=== PATIENT | male | born 1995 | race American Indian/Alaskan Native ===

== ENCOUNTER 2017-01-15 07:45 | Emergency (ER) | payer SELFPAY ==
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
[2017-01-15] MEDS ORDERED: NORCO 5/325 PO ONE (09:38)
[2017-01-15] MEDS ORDERED: TRIPLE ANTIBIOTIC TP ONE (09:38)
[2017-01-15] MEDS ORDERED: FLEXERIL PO ONE (09:38)
[2017-01-15] MEDS ORDERED: BOOSTRIX IM ONE (09:38)
[2017-01-15 11:20] VITALS: BP 137/87
== END 2017-01-15 11:45 | disposition home or self-care (01) ==
LOC: ED 07:45
DX: M62.838 Other muscle spasm (principal); M50.30 Other cervical disc degeneration, unspecified cervical region; G44.319 Acute post-traumatic headache, not intractable; H47.323 Drusen of optic disc, bilateral; S40.211A Abrasion of right shoulder, initial encounter; Z88.0 Allergy status to penicillin; V89.9XXA Person injured in unspecified vehicle accident, initial encounter; Y93.89 Activity, other specified; Y92.89 Other specified places as the place of occurrence of the external cause; Y99.8 Other external cause status
CPT/HCPCS: 70450; 72125; 90471; 90715; 99284; A6250